=== PATIENT | female | born 1955 | race Caucasian/White ===

== ENCOUNTER → 2025-02-09 09:21 | Outpatient (REF) | payer MEDICARE, BC, SELFPAY | LOC: WDC 09:21 | PROVIDERS: ATTENDING PHYSICIAN Nurse Practitioner Adult Health | DX: Z78.0 Asymptomatic menopausal state (principal); Z12.31 Encounter for screening mammogram for malignant neoplasm of breast | CPT/HCPCS: 77063; 77067; 77080 ==

== ENCOUNTER → 2025-02-13 14:13 | Outpatient (REF) | payer MEDICARE, BC, SELFPAY | LOC: RCS 14:13 | PROVIDERS: ATTENDING PHYSICIAN Internal Medicine Cardiovascular Disease; FAMILY PHYSICIAN Nurse Practitioner Adult Health | DX: R07.2 Precordial pain (principal); R06.09 Other forms of dyspnea | CPT/HCPCS: 93306 ==

== ENCOUNTER → 2025-03-10 08:38 | Outpatient (REF) | payer MEDICARE, BC, SELFPAY | LOC: RCS 08:38 | PROVIDERS: ATTENDING PHYSICIAN Internal Medicine Cardiovascular Disease; FAMILY PHYSICIAN Nurse Practitioner Adult Health | DX: R07.2 Precordial pain (principal) | CPT/HCPCS: 78452; 93017; A9500 ==